=== PATIENT | male | born 1965 | race Caucasian/White ===

== ENCOUNTER 2024-04-26 20:24 | Inpatient (IN) ==
[2024-04-26] MEDS: OPTIRAY 320 125ml IV ONE (20:41)
[2024-04-26] MEDS: SODIUM CHLORIDE 0.9% 1,000 ML IV ONE (20:55)
[2024-04-26] MEDS: ONDANSETRON INJ 2 MG/ML 2 ML VIAL IV STA (20:56)
[2024-04-26 21:02] LABS: iSTAT Creatinine 0.7 mg/dl (0.6-1.3); iSTAT Hemoglobin 12.2 g/dl (14.0-18.0); iSTAT Ionized Calcium 1.16 mmol/l (1.12-1.32); iSTAT Potassium 4.2 mmol/L (3.3-5.0)
--- NOTE | 2024-04-26 21:13 | Emergency Department Note ---
Impression & Plan Stroke-like symptoms, Vomiting, Hypomagnesemia, Facial droop, Headache ED Provider Note HISTORY OF PRESENT ILLNESS: Patient is a 58-year-old male presenting with strokelike symptoms. Patient reports that he woke up normal this morning but developed an acute onset of a headache at 7 AM. He states that his headache persisted and at 1300 he began to have slurred speech and right-sided facial droop. He went to the [facility] and EMS was called at 1945 due to his progression of symptoms. Patient had multiple episodes of vomiting prior to EMS arrival. Patient is not on any anticoagulation. Denies any recent head injury or chiropractic manipulation of the neck. He is currently complaining of nausea. He reports his speech sounds slurred. ROS: as above PHYSICAL EXAM: Constitutional: Patient appears in no acute distress. HENT: Head: Normocephalic and atraumatic. Eyes: EOMI, PERRL Mouth/Throat: Mucous membranes moist. Neck: Trachea midline. Neck supple. Cardiovascular: RRR, No murmurs, rubs or gallops. Intact distal pulses. Pulmonary/Chest: No respiratory distress. Breath sounds clear and equal bilaterally. No wheezes or rales. Abdominal: Abdomen soft, no tenderness, rebound or guarding. Musculoskeletal: No edema, tenderness or deformity noted. Skin: Warm and dry. No rash, erythema, pallor or cyanosis Psychiatric: Appropriate mood and affect for situation. Neurological: Alert and keenly responsive. Speech is slightly slurred. Patient has a right sided lower facial droop. Strength 4-5 in bilateral upper and lower extremities. MDM: - Vitals signs stable. Patient was alerted as a stroke prehospital, given concern for potential hemorrhagic stroke as a source for symptoms. Taken immediately to CT scanner on arrival to the ER. - History obtained via patient and EMS. History as above. - Chronic conditions affecting care: DM-2 - Differential diagnoses include, but are not limited to: CVA; intracranial hemorrhage; viral syndrome; ACS; pneumonia - Order placed for continuous cardiac monitoring. At this time, monitor showed rate of 83 bpm with normal sinus rhythm, per my interpretation. - External medical records reviewed. - EKG interpreted by myself showed normal sinus rhythm. Rate 84 bpm. QT 344. No acute ischemic changes. Noted have an incomplete right bundle branch block. - Laboratory workup interpreted by myself showed normal WBC; anemia (Hgb 11.9); normal PT/INR; stable electrolytes other than slight hypomagnesemia (Mg 1.3) - Patient given 1g IV magnesium for electrolyte replacement - Given 1L NS and 4 mg IV zofran in ER. - UA negative for infection - CXR negative for pneumonia, per my interpretation - CT head wo contrast negative for acute pathology - CTA head/neck negative for acute CVA - Patient is not within the window for TNK administration, as his last known well was before 7 AM and he presents to the emergency department closer to 1999. No obvious large vessel occlusion on examination or on CT imaging. Will admit to hospital service for further strokelike symptoms workup - Discussion was had with vocational case manager about patient's case and need for admission - Hospitalist, Dr. Malik, consulted for admission - Patient admitted to [facility] Hospitalist service for further evaluation and management. ASSESSMENT AND PLAN: Diagnosis: Strokelike symptoms; headache; vomiting; facial droop; hypomagnesemia Plan: Admit Past Med/Surg History Problem List (Updated 04/26/24 @ 23:39 by Ivis Chong MD) Headache (Acute) Facial droop (Acute) Hypomagnesemia (Acute) Vomiting (Acute) Stroke-like symptoms (Acute) Social History Smoking Status: Former smoker Preferred Language: Serbian Feels Safe at Home: Yes Allergies Allergies Allergy/AdvReac Type Severity Reaction Status Date / Time No Known Allergies Allergy Unverified 04/26/24 22:28 Home Meds Home Medications Medication Instructions Recorded Confirmed Crestor 40 mg PO 1XD 04/26/24 04/26/24 acetaminophen 650 mg PO 4XD 04/26/24 04/26/24 duloxetine 60 mg PO 1XD 04/26/24 04/26/24 gabapentin 600 mg PO 2XD 04/26/24 04/26/24 insulin glargine 35 units SC 1XD 04/26/24 04/26/24 meloxicam 15 mg PO 1XD PRN Pain 04/26/24 04/26/24 metformin 1,000 mg PO 2XD 04/26/24 04/26/24 mirtazapine 30 mg PO 1XD 04/26/24 04/26/24 omeprazole 20 mg PO 1XD 04/26/24 04/26/24 Results & Data (ED) Vital Signs Vital Signs - 24 hr 04/26/24 20:46 04/26/24 20:46 04/26/24 21:07 Pulse Rate 85 81 Pulse Rate [Apical] Pulse Rhythm Regular Regular Pulse Rhythm [Apical] Pulse Strength Normal Pulse Strength [Apical] Respiratory Rate 18 16 Respiratory Effort / Characteristics Non-Labored Spontaneous Respiratory Depth Normal Respiratory Pattern Regular Blood Pressure 102/68 Blood Pressure [Right Arm] Blood Pressure Mean 79 Blood Pressure Mean [Right Arm] Blood Pressure Position Lying Blood Pressure Position [Right Arm] Pulse Oximetry 88 L 88 L 94 Oxygen Delivery Method Room Air Room Air Nasal Cannula Oxygen Flow Rate 2 Sepsis Recent Fever Within 48 Hours No Sepsis New/Unexplained Change in Mental Status No Sepsis Action Taken by Nursing No Action Required Oxygen Flow Rate - Titration 2 Pulse Oximetry Post Tiitration 93 04/26/24 21:07 04/26/24 22:25 Pulse Rate Pulse Rate [Apical] 82 83 Pulse Rhythm Pulse Rhythm [Apical] Regular Regular Pulse Strength Pulse Strength [Apical] Normal Normal Respiratory Rate 16 18 Respiratory Effort / Characteristics Non-Labored Spontaneous Non-Labored Spontaneous Respiratory Depth Normal Normal Respiratory Pattern Regular Regular Blood Pressure Blood Pressure [Right Arm] 119/88 145/83 H Blood Pressure Mean Blood Pressure Mean [Right Arm] 98 103 Blood Pressure Position Blood Pressure Position [Right Arm] Lying Lying Pulse Oximetry 94 92 Oxygen Delivery Method Nasal Cannula Nasal Cannula Oxygen Flow Rate 2 2 Sepsis Recent Fever Within 48 Hours Sepsis New/Unexplained Change in Mental Status Sepsis Action Taken by Nursing Oxygen Flow Rate - Titration Pulse Oximetry Post Tiitration Laboratory Data 04/26/24 20:45 04/26/24 20:45 Lab Results 04/26/24 04/26/24 04/26/24 Range/Units 20:41 20:45 20:49 WBC 7.00 (4.8-10.8) K/ul RBC 4.46 L (4.70-6.10) M/uL Hgb 11.9 L (14.0-18.0) g/dl POC Hgb 12.2 L (14.0-18.0) g/dl Hct 35.9 L (42.0-52.0) % POC Hct 36 L (42-52) % MCV 80.5 (80.0-100.0) fL MCH 26.7 (25.0-34.0) pg MCHC 33.1 (32.0-36.0) g/dL RDW Std Deviation 37.0 (36.4-46.3) fL RDW Coeff of Juliana 12.8 (11.5-14.5) % Plt Count 244 (130-400) K/uL MPV 9.4 (9.4-12.4) fL PT 11.2 (9.0-12.0) Seconds INR 1.0 (0.9-1.1) APTT 25 (21-31) Seconds PTT Ratio 0.9 POC Sodium 136 (135-144) mmol/L Sodium 135 L (136-145) mmol/L POC Potassium 4.2 (3.3-5.0) mmol/L Potassium 4.1 (3.5-5.1) mmol/L POC Chloride 98 L (101-112) mmol/L Chloride 101 (98-107) mmol/L Carbon Dioxide 28 (21-32) mmol/L POC Total CO2 23 L (24-31) mmol/L Anion Gap 6 (3-11) POC Anion Gap 21.0 (16-25) mmol/L POC BUN 12 (7-18) mg/dl BUN 13 (6-23) mg/dl Creatinine 0.75 (0.6-1.4) mg/dl POC Creatinine 0.7 (0.6-1.3) mg/dl Est Cr Clr Drug Dosing 121.5 ml/min Est GFR ( Amer) 116.4 ml/min Est GFR (Non-Af Amer) 100.4 ml/min BUN/Creatinine Ratio 17.3 (10-20) Glucose 143 H (70-99(Fasting)) mg/dl POC Glucose 143 H (70-99) mg/dl POC Glucose (other) 138 H (70-99) mg/dl Calcium 8.8 (8.6-10.3) mg/dl POC Ioniz Calcium Darwin 1.16 (1.12-1.32) mmol/l Magnesium 1.3 L (1.7-2.4) mg/dl Total Bilirubin 1.2 H (0.2-1.0) mg/dl AST 19 (13-39) U/L ALT 18 (7-52) U/L Alkaline Phosphatase 57 (34-104) U/L Total Protein 5.9 L (6.0-8.3) gm/dl Albumin 4.0 (3.4-5.0) gm/dl Globulin 1.9 L (2.5-4.0) gm/dl Albumin/Globulin Ratio 2.1 H (0.9-2) Urine Color Urine Appearance (Clear) Urine pH (4.5-7.5) Ur Specific [place] (1.000-1.030) Urine Protein (Negative) Urine Glucose (UA) (Negative) Urine Ketones (Negative) Urine Blood (Negative) Urine Nitrite (Negative) Urine Bilirubin (Negative) Urine Urobilinogen (Negative) Ur Leukocyte Esterase (Negative) Urine WBC (Auto) (0-5) /hpf Urine RBC (Auto) (0-2) /hpf U Hyaline Cast (Auto) (0-2) /lpf U Epithel Cells (Auto) (0-2) /hpf Urine Bacteria (Auto) (None Seen) 04/26/24 Range/Units 22:12 WBC (4.8-10.8) K/ul RBC (4.70-6.10) M/uL Hgb (14.0-18.0) g/dl POC Hgb (14.0-18.0) g/dl Hct (42.0-52.0) % POC Hct (42-52) % MCV (80.0-100.0) fL MCH (25.0-34.0) pg MCHC (32.0-36.0) g/dL RDW Std Deviation (36.4-46.3) fL RDW Coeff of Juliana (11.5-14.5) % Plt Count (130-400) K/uL MPV (9.4-12.4) fL PT (9.0-12.0) Seconds INR (0.9-1.1) APTT (21-31) Seconds PTT Ratio POC Sodium (135-144) mmol/L Sodium (136-145) mmol/L POC Potassium (3.3-5.0) mmol/L Potassium (3.5-5.1) mmol/L POC Chloride (101-112) mmol/L Chloride (98-107) mmol/L Carbon Dioxide (21-32) mmol/L POC Total CO2 (24-31) mmol/L Anion Gap (3-11) POC Anion Gap (16-25) mmol/L POC BUN (7-18) mg/dl BUN (6-23) mg/dl Creatinine (0.6-1.4) mg/dl POC Creatinine (0.6-1.3) mg/dl Est Cr Clr Drug Dosing ml/min Est GFR ( Amer) ml/min Est GFR (Non-Af Amer) ml/min BUN/Creatinine Ratio (10-20) Glucose (70-99(Fasting)) mg/dl POC Glucose (70-99) mg/dl POC Glucose (other) (70-99) mg/dl Calcium (8.6-10.3) mg/dl POC Ioniz Calcium Darwin (1.12-1.32) mmol/l Magnesium (1.7-2.4) mg/dl Total Bilirubin (0.2-1.0) mg/dl AST (13-39) U/L ALT (7-52) U/L Alkaline Phosphatase (34-104) U/L Total Protein (6.0-8.3) gm/dl Albumin (3.4-5.0) gm/dl Globulin (2.5-4.0) gm/dl Albumin/Globulin Ratio (0.9-2) Urine Color Yellow Urine Appearance Clear (Clear) Urine pH 7.5 (4.5-7.5) Ur Specific [place] > 1.045 H (1.000-1.030) Urine Protein 1+ H (Negative) Urine Glucose (UA) Negative (Negative) Urine Ketones Negative (Negative) Urine Blood Negative (Negative) Urine Nitrite Negative (Negative) Urine Bilirubin Negative (Negative) Urine Urobilinogen Negative (Negative) Ur Leukocyte Esterase Negative (Negative) Urine WBC (Auto) 0-5 (0-5) /hpf Urine RBC (Auto) 0-2 (0-2) /hpf U Hyaline Cast (Auto) 0-2 (0-2) /lpf U Epithel Cells (Auto) 0-2 (0-2) /hpf Urine Bacteria (Auto) None Seen (None Seen) Administered Medications Magnesium Sulfate/Dextrose (Magnesium Sulfate / D5w) 1 gm in 100 mls @ 50 mls/hr IV Q2H KAMI Stop: 04/27/24 02:59 Last Admin: 04/26/24 22:33 Dose: 50 mls/hr Documented By: SNS Discontinued Medications Sodium Chloride (Nss) 1,000 mls @ 999 mls/hr IV .Q1H1M ONE Stop: 04/26/24 21:45 Last Infusion: 04/26/24 21:57 Dose: Infused Documented By: Admin: 04/26/24 20:55 Dose: 999 mls/hr Documented By: ROXANE Magnesium Sulfate/Dextrose (Magnesium Sulfate / D5w) 1 gm in 100 mls @ 100 mls/hr IV NOW STA Stop: 04/26/24 22:17 Last Infusion: 04/26/24 22:28 Dose: Infused Documented By: Admin: 04/26/24 21:26 Dose: 100 mls/hr Documented By: ROXANE Ioversol (Optiray 320 125ml) 119 ml IV ONCE ONE Stop: 04/26/24 20:42 Last Admin: 04/26/24 20:41 Dose: 119 ml Documented By: KENNETH Ondansetron HCl (Ondansetron Inj 2 Mg/Ml 2 Ml Vial) 4 mg IV NOW STA Stop: 04/26/24 20:46 Last Admin: 04/26/24 20:56 Dose: 4 mg Documented By: ROXANE Imaging Data Radiologist's Impression: Head CT 04/26/24 20:30 CR Exam(s): CT HEAD Without Contrast EXAM: CT Head Without Intravenous Contrast CLINICAL HISTORY: Reason for exam: altered mental status; vomiting; headache. TECHNIQUE: Axial computed tomography images of the head/brain without intravenous contrast. CTDI is 44.21 mGy and DLP is 774.27 mGy-cm. Automated exposure control was utilized for the study. A dose lowering technique was utilized adhering to the principles of ALARA. COMPARISON: No relevant prior studies available. FINDINGS: Limitations: Exam slight limited secondary patient motion artifact. Brain: Unremarkable. No hemorrhage. No significant white matter disease. No edema. Ventricles: Unremarkable. No ventriculomegaly. Bones/joints: Unremarkable. No acute fracture. Soft tissues: Unremarkable. Sinuses: Unremarkable as visualized. No acute sinusitis. Mastoid air cells: Unremarkable as visualized. No mastoid effusion. IMPRESSION: No acute findings in the head/brain. Communications: Call Doctor Stroke Electronically signed by: Melvin Moscoso MD 04/26/24 21:16 PM Head CTA 04/26/24 20:30 CR Exam(s): CTA HEAD With Contrast IV Amt: 119 ml opti 320 EXAM: CT Angiography Head With Intravenous Contrast CLINICAL HISTORY: Reason for exam: stroke. TECHNIQUE: Axial computed tomographic angiography images of the head with intravenous contrast. CTDI is 91.44 mGy and DLP is 1342.35 mGy-cm. Automated exposure control was utilized for the study. A dose lowering technique was utilized adhering to the principles of ALARA. MIP reconstructed images were created and reviewed. CONTRAST: Patient received 119 ml opti 320 of IV contrast COMPARISON: No relevant prior studies available. FINDINGS: Right internal carotid artery: No acute findings. Intracranial segment is patent with no significant stenosis. No aneurysm. Right anterior cerebral artery: Unremarkable. No occlusion or significant stenosis. No aneurysm. Right middle cerebral artery: Unremarkable. No occlusion or significant stenosis. No aneurysm. Right posterior cerebral artery: Unremarkable. No occlusion or significant stenosis. No aneurysm. Right vertebral artery: Unremarkable as visualized. Left internal carotid artery: No acute findings. Intracranial segment is patent with no significant stenosis. No aneurysm. Left anterior cerebral artery: Unremarkable. No occlusion or significant stenosis. No aneurysm. Left middle cerebral artery: Unremarkable. No occlusion or significant stenosis. No aneurysm. Left posterior cerebral artery: Unremarkable. No occlusion or significant stenosis. No aneurysm. Left vertebral artery: Unremarkable as visualized. Basilar artery: Unremarkable. No occlusion or significant stenosis. No aneurysm. IMPRESSION: Normal head CTA. Communications: Call Doctor Stroke Electronically signed by: Melvin Moscoso MD 04/26/24 21:25 PM Neck CTA 04/26/24 20:30 CR Exam(s): CTA NECK With Contrast IV Amt: 119 ml opti 320 EXAM: CT Angiography Neck With Intravenous Contrast CLINICAL HISTORY: Reason for exam: stroke like symptoms. TECHNIQUE: Routine carotid CT angiography protocol was performed with intravenous contrast. NASCET criteria using the distal ICAs for comparison were used for evaluation of stenoses. CTDI is 91.44 mGy and DLP is 1342.35 mGy-cm. Automated exposure control was utilized for the study. A dose lowering technique was utilized adhering to the principles of ALARA. MIP reconstructed images were created and reviewed. CONTRAST: Patient received 119 ml opti 320 of IV contrast COMPARISON: None. FINDINGS: VASCULATURE: Right common carotid artery: Unremarkable. No occlusion or significant stenosis. No dissection. Right internal carotid artery: Unremarkable. Extracranial segment is patent with no occlusion or significant stenosis. No dissection. Right external carotid artery: Unremarkable. No occlusion. Right vertebral artery: Unremarkable. No occlusion or significant stenosis. No dissection. Left common carotid artery: Unremarkable. No occlusion or significant stenosis. No dissection. Left internal carotid artery: Unremarkable. Extracranial segment is patent with no occlusion or significant stenosis. No dissection. Left external carotid artery: Unremarkable. No occlusion. Left vertebral artery: Unremarkable. No occlusion or significant stenosis. No dissection. NECK: Bones/joints: Unremarkable. No acute fracture. Soft tissues: Unremarkable. Lung apices: Clear. CAROTID STENOSIS REFERENCE USING NASCET CRITERIA: % ICA stenosis = (1 - narrowest ICA diameter/diameter of distal cervical ICA) x 100. Mild - <50% stenosis. Moderate - 50-69% stenosis. Severe - 70-94% stenosis. Near occlusion - 95-99% stenosis. Occluded - 100% stenosis. IMPRESSION: Negative CTA neck. Communications: Call Doctor Stroke Electronically signed by: Melvin Moscoso MD 04/26/24 21:26 PM Discharge Plan Visit Data Chief Complaint: Stroke Alert Stated Complaint: Slurred Speech, DYE, Facial Droop ED Provider: Ivis Chong Discharge Problem: Stroke-like symptoms, Vomiting, Hypomagnesemia, Facial droop, Headache Forms Stand Alone Forms: [facility] 24/7 Card Prescriptions Prescriptions: No Action acetaminophen 650 mg PO 4XD meloxicam 15 mg PO 1XD PRN (Reason: Pain) mirtazapine 30 mg PO 1XD Rx Instructions: AT BEDTIME duloxetine 60 mg PO 1XD gabapentin 600 mg PO 2XD Rx Instructions: CRUSH metformin 1,000 mg PO 2XD omeprazole 20 mg PO 1XD Rx Instructions: take on an empty stomach Crestor 40 mg PO 1XD insulin glargine 35 units SC 1XD Referrals Referrals: Mane RIVER [Primary Care Provider] -
[2024-04-26 21:15] LABS: Albumin Globulin Ratio 2.1 (0.9-2); BUN Creatinine Ratio 17.3 (10-20); Bilirubin,Total 1.2 mg/dl (0.2-1.0); Calcium 8.8 mg/dl (8.6-10.3); Creatinine Clr Calc Pharmacy 121.5 ml/min; Est GFR (African American) 116.4 ml/min; Est GFR (Non-African American) 100.4 ml/min; Globulin 1.9 gm/dl (2.5-4.0); Magnesium 1.3 mg/dl (1.7-2.4); Potassium 4.1 mmol/L (3.5-5.1); Total Protein 5.9 gm/dl (6.0-8.3)
--- NOTE | 2024-04-26 21:17 | CT Scan Report ---
Exam(s): CT HEAD Without Contrast EXAM: CT Head Without Intravenous Contrast CLINICAL HISTORY: Reason for exam: altered mental status; vomiting; headache. TECHNIQUE: Axial computed tomography images of the head/brain without intravenous contrast. CTDI is 44.21 mGy and DLP is 774.27 mGy-cm. Automated exposure control was utilized for the study. A dose lowering technique was utilized adhering to the principles of ALARA. COMPARISON: No relevant prior studies available. FINDINGS: Limitations: Exam slight limited secondary patient motion artifact. Brain: Unremarkable. No hemorrhage. No significant white matter disease. No edema. Ventricles: Unremarkable. No ventriculomegaly. Bones/joints: Unremarkable. No acute fracture. Soft tissues: Unremarkable. Sinuses: Unremarkable as visualized. No acute sinusitis. Mastoid air cells: Unremarkable as visualized. No mastoid effusion. IMPRESSION: No acute findings in the head/brain. Communications: Call Doctor Stroke Electronically signed by: Melvin Moscoso MD 04/26/24 21:16 PM
[2024-04-26 21:25] LABS: Partial Thromboplastin Ratio 0.9; Partial Thromboplastin Time 25 Seconds (21-31); Prothrombin Time 11.2 Seconds (9.0-12.0)
[2024-04-26] MEDS: MAGNESIUM SULFATE / D5W 1 GM/100 ML BAG IV STA (21:26)
--- NOTE | 2024-04-26 21:26 | CT Scan Report ---
Exam(s): CTA HEAD With Contrast IV Amt: 119 ml opti 320 EXAM: CT Angiography Head With Intravenous Contrast CLINICAL HISTORY: Reason for exam: stroke. TECHNIQUE: Axial computed tomographic angiography images of the head with intravenous contrast. CTDI is 91.44 mGy and DLP is 1342.35 mGy-cm. Automated exposure control was utilized for the study. A dose lowering technique was utilized adhering to the principles of ALARA. MIP reconstructed images were created and reviewed. CONTRAST: Patient received 119 ml opti 320 of IV contrast COMPARISON: No relevant prior studies available. FINDINGS: Right internal carotid artery: No acute findings. Intracranial segment is patent with no significant stenosis. No aneurysm. Right anterior cerebral artery: Unremarkable. No occlusion or significant stenosis. No aneurysm. Right middle cerebral artery: Unremarkable. No occlusion or significant stenosis. No aneurysm. Right posterior cerebral artery: Unremarkable. No occlusion or significant stenosis. No aneurysm. Right vertebral artery: Unremarkable as visualized. Left internal carotid artery: No acute findings. Intracranial segment is patent with no significant stenosis. No aneurysm. Left anterior cerebral artery: Unremarkable. No occlusion or significant stenosis. No aneurysm. Left middle cerebral artery: Unremarkable. No occlusion or significant stenosis. No aneurysm. Left posterior cerebral artery: Unremarkable. No occlusion or significant stenosis. No aneurysm. Left vertebral artery: Unremarkable as visualized. Basilar artery: Unremarkable. No occlusion or significant stenosis. No aneurysm. IMPRESSION: Normal head CTA. Communications: Call Doctor Stroke Electronically signed by: Melvin Moscoso MD 04/26/24 21:25 PM
--- NOTE | 2024-04-26 21:27 | CT Scan Report ---
Exam(s): CTA NECK With Contrast IV Amt: 119 ml opti 320 EXAM: CT Angiography Neck With Intravenous Contrast CLINICAL HISTORY: Reason for exam: stroke like symptoms. TECHNIQUE: Routine carotid CT angiography protocol was performed with intravenous contrast. NASCET criteria using the distal ICAs for comparison were used for evaluation of stenoses. CTDI is 91.44 mGy and DLP is 1342.35 mGy-cm. Automated exposure control was utilized for the study. A dose lowering technique was utilized adhering to the principles of ALARA. MIP reconstructed images were created and reviewed. CONTRAST: Patient received 119 ml opti 320 of IV contrast COMPARISON: None. FINDINGS: VASCULATURE: Right common carotid artery: Unremarkable. No occlusion or significant stenosis. No dissection. Right internal carotid artery: Unremarkable. Extracranial segment is patent with no occlusion or significant stenosis. No dissection. Right external carotid artery: Unremarkable. No occlusion. Right vertebral artery: Unremarkable. No occlusion or significant stenosis. No dissection. Left common carotid artery: Unremarkable. No occlusion or significant stenosis. No dissection. Left internal carotid artery: Unremarkable. Extracranial segment is patent with no occlusion or significant stenosis. No dissection. Left external carotid artery: Unremarkable. No occlusion. Left vertebral artery: Unremarkable. No occlusion or significant stenosis. No dissection. NECK: Bones/joints: Unremarkable. No acute fracture. Soft tissues: Unremarkable. Lung apices: Clear. CAROTID STENOSIS REFERENCE USING NASCET CRITERIA: % ICA stenosis = (1 - narrowest ICA diameter/diameter of distal cervical ICA) x 100. Mild - <50% stenosis. Moderate - 50-69% stenosis. Severe - 70-94% stenosis. Near occlusion - 95-99% stenosis. Occluded - 100% stenosis. IMPRESSION: Negative CTA neck. Communications: Call Doctor Stroke Electronically signed by: Melvin Moscoso MD 04/26/24 21:26 PM
[2024-04-26 21:30] LABS: Hematocrit (blood only) 35.9 % (42.0-52.0); Hemoglobin 11.9 g/dl (14.0-18.0); Mean Corpuscular Hemoglobin 26.7 pg (25.0-34.0); Mean Corpuscular Hgb Conc 33.1 g/dL (32.0-36.0); Mean Corpuscular Volume 80.5 fL (80.0-100.0); Mean Platelet Volume 9.4 fL (9.4-12.4); Platelet Count 244 K/uL (130-400); RDW Coefficient of Variation 12.8 % (11.5-14.5); Red Blood Count 4.46 M/uL (4.70-6.10)
[2024-04-26 22:25] LABS: Appearance Urine Clear (Clear); Bacteria Urine Automated None Seen (None Seen); Bilirubin Urine Negative (Negative); Blood Urine Negative (Negative); Cast Urine Automated 0-2 /lpf (0-2); Color Urine Yellow; Epithelial Cell Urine Auto 0-2 /hpf (0-2); Glucose Urine UA Negative (Negative); Ketones Urine Negative (Negative); Leukocyte Esterase Urine Negative (Negative); Nitrite Urine Negative (Negative); Protein Urine 1+ (Negative); RBC Urine Automated 0-2 /hpf (0-2); Specific Gravity Urine > 1.045 (1.000-1.030); Urobilinogen Urine Negative (Negative); WBC Urine Automated 0-5 /hpf (0-5); pH Urine 7.5 (4.5-7.5)
[2024-04-26] MEDS: MAGNESIUM SULFATE / D5W 1 GM/100 ML BAG IV SCH (22:33)
[2024-04-26 22:46] LABS: Adenovirus PCR Not Detected (NotDetected); Bordetella parapertussis PCR Not Detected (NotDetected); Bordetella pertussis PCR Not Detected (NotDetected); Chlamydia pneumoniae PCR Not Detected (NotDetected); Coronavirus 229E PCR Not Detected (NotDetected); Coronavirus CoV-2 (COVID19)PCR DETECTED (NotDetected); Coronavirus HKU1 PCR Not Detected (NotDetected); Coronavirus NL63 PCR Not Detected (NotDetected); Coronavirus OC43PCR Not Detected (NotDetected); Human Metapneumovirus PCR Not Detected (NotDetected); Influenza A PCR Not Detected (NotDetected); Influenza B PCR Not Detected (NotDetected); Mycoplasma pneumoniae PCR Not Detected (NotDetected); Parainfluenza Virus 1 PCR Not Detected (NotDetected); Parainfluenza Virus 2 PCR Not Detected (NotDetected); Parainfluenza Virus 3 PCR Not Detected (NotDetected); Parainfluenza Virus 4 PCR Not Detected (NotDetected); Respiratory Syncytial VirusPCR Not Detected (NotDetected); Rhinovirus/Enterovirus PCR Not Detected (NotDetected)
--- NOTE | 2024-04-26 23:41 | History & Physical Report ---
Date of Service April 26, 2024 Assessment & Plan (1) Acute hypoxemic respiratory failure: Plan: Mild pulmonary edema on CT imaging COVID-19 illness Confusion, aphasia episodes Rule out CVA hyperlipidemia, on statin Rx DM2 insulin requiring, unknown baseline control New onset anemia, recent outpatient hemoglobin from October 2023 within normal limits as per SCI staff, no overt source of bleed currently, FOBT done at the ER negative. mood disorder past history of substance abuse as per records Admit to med/tele Supplemental O2 Lasix 1 dose now Supportive management for COVID-19 illness Check TTE Neurochecks Aspirin for stroke prevention until ischemic stroke ruled out by MRI brain Neurology consult contingent on MRI results Check lipid profile, hemoglobin A1c ISS BG goal 1 10-1 40, carb count coverage Anemia workup DVT prophylaxis per Lovenox subcu Full code Total critical care time last 40 minutes. Text document was generated using [employer] voice recognition software. It may contain grammatical or spelling errors. Kindly contact undersigned for clarification of any documentation item in question. History of Present Illness Chief Complaint: Headache, confusion, slurred speech as per records Primary Care Provider: [facility] History obtained from patient, SCI staff, and records. Limited history from patient secondary to disorientation. Medical history significant for hyperlipidemia, DM2 insulin requiring, GERD, chronic back pain, mood disorder, past history of substance abuse. Patient woke up this morning complaining of left-sided headache. Patient noted to be slurring his speech in the afternoon. Subsequent emesis. Patient brought to ER for evaluation. Stroke alert called upon arrival at the ER. O2 sats noted to be 80s on room air. Patient unable to answer questions regarding headache, chest pain, cough, SOB, abdominal pain due to confusion. Medical History as above Surgical History/Family History/Personal/Social history : Could not be obtained secondary to disorientation Allergies Allergy/AdvReac Type Severity Reaction Status Date / Time No Known Allergies Allergy Unverified 04/26/24 22:28 Home Medications Medication Instructions Recorded Confirmed Type Crestor 40 mg PO 1XD 04/26/24 04/26/24 History acetaminophen 650 mg PO 4XD 04/26/24 04/26/24 History duloxetine 60 mg PO 1XD 04/26/24 04/26/24 History gabapentin 600 mg PO 2XD 04/26/24 04/26/24 History insulin glargine 35 units SC 1XD 04/26/24 04/26/24 History meloxicam 15 mg PO 1XD PRN Pain 04/26/24 04/26/24 History metformin 1,000 mg PO 2XD 04/26/24 04/26/24 History mirtazapine 30 mg PO 1XD 04/26/24 04/26/24 History omeprazole 20 mg PO 1XD 04/26/24 04/26/24 History Past Med/Surg History Problem List (Updated 04/27/24 @ 06:13 by Lucius Malik MD) Acute hypoxemic respiratory failure Headache (Acute) Facial droop (Acute) Hypomagnesemia (Acute) Vomiting (Acute) Stroke-like symptoms (Acute) Social History Smoking Status: Former smoker Do You Dip or Chew Tobacco: No; Hx Alcohol Use: No Hx Substance Use: No Preferred Language: Nepalese Communication Ability: Effective Debt And Budget Counselor Required: No Beliefs That Will Affect Care: None Current Living Situation: Other Current Living Situation Comment: [facility] Other Information That Helps Us Care for You: No Feels Safe at Home: Yes Safety Concerns: Feels Safe At This Time Assistive Devices: None Review of Systems Review of Systems: Could not be reliably obtained secondary to disorientation Physical Exam Physical Exam: GENERAL: Aphasic, disoriented, restless, no respiratory distress SKIN: Pallor, warm HEENT: Pale palpebral conjunctivae, no ptosis, dry buccal mucosa NECK : Supple, no tenderness CHEST : Decreased breath sounds, no tenderness HEART : RRR, no obvious murmurs ABDOMEN: Some distention, nontender RECTAL : Intact sphincter, yellow stool (FOBT negative) EXTREMITIES : No LE swelling/tenderness, no other conspicuous deformities noted NEUROLOGIC : Aphasic, disoriented, no facial asymmetry, gait and stance not assessed Results & Data Results & Data Vital Signs (Past 12 Hours) Vital Signs Pulse Pulse Resp BP BP Pulse Ox O2 Del Method 04/26/24 22:25 83 18 145/83 H 92 Nasal Cannula 04/26/24 21:07 82 16 119/88 94 Nasal Cannula 04/26/24 21:07 81 16 94 Nasal Cannula 04/26/24 20:46 88 L Room Air 04/26/24 20:46 85 18 102/68 88 L Room Air O2 Flow Rate 04/26/24 22:25 2 04/26/24 21:07 2 04/26/24 21:07 2 04/26/24 20:46 04/26/24 20:46 Laboratory Results Laboratory Results WBC 7.00 K/ul (4.8-10.8) 04/26/24 20:45 RBC 4.46 M/uL (4.70-6.10) L 04/26/24 20:45 Hgb 11.9 g/dl (14.0-18.0) L 04/26/24 20:45 POC Hgb 12.2 g/dl (14.0-18.0) L 04/26/24 20:49 Hct 35.9 % (42.0-52.0) L 04/26/24 20:45 POC Hct 36 % (42-52) L 04/26/24 20:49 MCV 80.5 fL (80.0-100.0) 04/26/24 20:45 MCH 26.7 pg (25.0-34.0) 04/26/24 20:45 MCHC 33.1 g/dL (32.0-36.0) 04/26/24 20:45 RDW Std Deviation 37.0 fL (36.4-46.3) 04/26/24 20:45 RDW Coeff of Juliana 12.8 % (11.5-14.5) 04/26/24 20:45 Plt Count 244 K/uL (130-400) 04/26/24 20:45 MPV 9.4 fL (9.4-12.4) 04/26/24 20:45 PT 11.2 Seconds (9.0-12.0) 04/26/24 20:45 INR 1.0 (0.9-1.1) 04/26/24 20:45 APTT 25 Seconds (21-31) 04/26/24 20:45 PTT Ratio 0.9 04/26/24 20:45 POC Sodium 136 mmol/L (135-144) 04/26/24 20:49 Sodium 135 mmol/L (136-145) L 04/26/24 20:45 POC Potassium 4.2 mmol/L (3.3-5.0) 04/26/24 20:49 Potassium 4.1 mmol/L (3.5-5.1) 04/26/24 20:45 POC Chloride 98 mmol/L (101-112) L 04/26/24 20:49 Chloride 101 mmol/L (98-107) 04/26/24 20:45 Carbon Dioxide 28 mmol/L (21-32) 04/26/24 20:45 POC Total CO2 23 mmol/L (24-31) L 04/26/24 20:49 Anion Gap 6 (3-11) 04/26/24 20:45 POC Anion Gap 21.0 mmol/L (16-25) 04/26/24 20:49 POC BUN 12 mg/dl (7-18) 04/26/24 20:49 BUN 13 mg/dl (6-23) 04/26/24 20:45 Creatinine 0.75 mg/dl (0.6-1.4) 04/26/24 20:45 POC Creatinine 0.7 mg/dl (0.6-1.3) 04/26/24 20:49 Est Cr Clr Drug Dosing 121.5 ml/min 04/26/24 20:45 Est GFR ( Amer) 116.4 ml/min 04/26/24 20:45 Est GFR (Non-Af Amer) 100.4 ml/min 04/26/24 20:45 BUN/Creatinine Ratio 17.3 (10-20) 04/26/24 20:45 Glucose 143 mg/dl (70-99(Fasting)) H 04/26/24 20:45 POC Glucose 143 mg/dl (70-99) H 04/26/24 20:41 POC Glucose (other) 138 mg/dl (70-99) H 04/26/24 20:49 Calcium 8.8 mg/dl (8.6-10.3) 04/26/24 20:45 POC Ioniz Calcium Darwin 1.16 mmol/l (1.12-1.32) 04/26/24 20:49 Magnesium 1.3 mg/dl (1.7-2.4) L 04/26/24 20:45 Total Bilirubin 1.2 mg/dl (0.2-1.0) H 04/26/24 20:45 AST 19 U/L (13-39) 04/26/24 20:45 ALT 18 U/L (7-52) 04/26/24 20:45 Alkaline Phosphatase 57 U/L (34-104) 04/26/24 20:45 Total Protein 5.9 gm/dl (6.0-8.3) L 04/26/24 20:45 Albumin 4.0 gm/dl (3.4-5.0) 04/26/24 20:45 Globulin 1.9 gm/dl (2.5-4.0) L 04/26/24 20:45 Albumin/Globulin Ratio 2.1 (0.9-2) H 04/26/24 20:45 Urine Color Yellow 04/26/24 22:12 Urine Appearance Clear (Clear) 04/26/24 22:12 Urine pH 7.5 (4.5-7.5) 04/26/24 22:12 Ur Specific [place] > 1.045 (1.000-1.030) H 04/26/24 22:12 Urine Protein 1+ (Negative) H 04/26/24 22:12 Urine Glucose (UA) Negative (Negative) 04/26/24 22:12 Urine Ketones Negative (Negative) 04/26/24 22:12 Urine Blood Negative (Negative) 04/26/24 22:12 Urine Nitrite Negative (Negative) 04/26/24 22:12 Urine Bilirubin Negative (Negative) 04/26/24 22:12 Urine Urobilinogen Negative (Negative) 04/26/24 22:12 Ur Leukocyte Esterase Negative (Negative) 04/26/24 22:12 Urine WBC (Auto) 0-5 /hpf (0-5) 04/26/24 22:12 Urine RBC (Auto) 0-2 /hpf (0-2) 04/26/24 22:12 U Hyaline Cast (Auto) 0-2 /lpf (0-2) 04/26/24 22:12 U Epithel Cells (Auto) 0-2 /hpf (0-2) 04/26/24 22:12 Urine Bacteria (Auto) None Seen (None Seen) 04/26/24 22:[address] 04/26/24 20:30 CR Exam(s): CT HEAD Without Contrast EXAM: CT Head Without Intravenous Contrast CLINICAL HISTORY: Reason for exam: altered mental status; vomiting; headache. TECHNIQUE: Axial computed tomography images of the head/brain without intravenous contrast. CTDI is 44.21 mGy and DLP is 774.27 mGy-cm. Automated exposure control was utilized for the study. A dose lowering technique was utilized adhering to the principles of ALARA. COMPARISON: No relevant prior studies available. FINDINGS: Limitations: Exam slight limited secondary patient motion artifact. Brain: Unremarkable. No hemorrhage. No significant white matter disease. No edema. Ventricles: Unremarkable. No ventriculomegaly. Bones/joints: Unremarkable. No acute fracture. Soft tissues: Unremarkable. Sinuses: Unremarkable as visualized. No acute sinusitis. Mastoid air cells: Unremarkable as visualized. No mastoid effusion. IMPRESSION: No acute findings in the head/brain. Communications: Call Doctor Stroke Electronically signed by: Melvin Moscoso MD 04/26/24 21:16 PM Head CTA 04/26/24 20:30 CR Exam(s): CTA HEAD With Contrast IV Amt: 119 ml opti 320 EXAM: CT Angiography Head With Intravenous Contrast CLINICAL HISTORY: Reason for exam: stroke. TECHNIQUE: Axial computed tomographic angiography images of the head with intravenous contrast. CTDI is 91.44 mGy and DLP is 1342.35 mGy-cm. Automated exposure control was utilized for the study. A dose lowering technique was utilized adhering to the principles of ALARA. MIP reconstructed images were created and reviewed. CONTRAST: Patient received 119 ml opti 320 of IV contrast COMPARISON: No relevant prior studies available. FINDINGS: Right internal carotid artery: No acute findings. Intracranial segment is patent with no significant stenosis. No aneurysm. Right anterior cerebral artery: Unremarkable. No occlusion or significant stenosis. No aneurysm. Right middle cerebral artery: Unremarkable. No occlusion or significant stenosis. No aneurysm. Right posterior cerebral artery: Unremarkable. No occlusion or significant stenosis. No aneurysm. Right vertebral artery: Unremarkable as visualized. Left internal carotid artery: No acute findings. Intracranial segment is patent with no significant stenosis. No aneurysm. Left anterior cerebral artery: Unremarkable. No occlusion or significant stenosis. No aneurysm. Left middle cerebral artery: Unremarkable. No occlusion or significant stenosis. No aneurysm. Left posterior cerebral artery: Unremarkable. No occlusion or significant stenosis. No aneurysm. Left vertebral artery: Unremarkable as visualized. Basilar artery: Unremarkable. No occlusion or significant stenosis. No aneurysm. IMPRESSION: Normal head CTA. Communications: Call Doctor Stroke Electronically signed by: Melvin Moscoso MD 04/26/24 21:25 PM Neck CTA 04/26/24 20:30 CR Exam(s): CTA NECK With Contrast IV Amt: 119 ml opti 320 EXAM: CT Angiography Neck With Intravenous Contrast CLINICAL HISTORY: Reason for exam: stroke like symptoms. TECHNIQUE: Routine carotid CT angiography protocol was performed with intravenous contrast. NASCET criteria using the distal ICAs for comparison were used for evaluation of stenoses. CTDI is 91.44 mGy and DLP is 1342.35 mGy-cm. Automated exposure control was utilized for the study. A dose lowering technique was utilized adhering to the principles of ALARA. MIP reconstructed images were created and reviewed. CONTRAST: Patient received 119 ml opti 320 of IV contrast COMPARISON: None. FINDINGS: VASCULATURE: Right common carotid artery: Unremarkable. No occlusion or significant stenosis. No dissection. Right internal carotid artery: Unremarkable. Extracranial segment is patent with no occlusion or significant stenosis. No dissection. Right external carotid artery: Unremarkable. No occlusion. Right vertebral artery: Unremarkable. No occlusion or significant stenosis. No dissection. Left common carotid artery: Unremarkable. No occlusion or significant stenosis. No dissection. Left internal carotid artery: Unremarkable. Extracranial segment is patent with no occlusion or significant stenosis. No dissection. Left external carotid artery: Unremarkable. No occlusion. Left vertebral artery: Unremarkable. No occlusion or significant stenosis. No dissection. NECK: Bones/joints: Unremarkable. No acute fracture. Soft tissues: Unremarkable. Lung apices: Clear. CAROTID STENOSIS REFERENCE USING NASCET CRITERIA: % ICA stenosis = (1 - narrowest ICA diameter/diameter of distal cervical ICA) x 100. Mild - <50% stenosis. Moderate - 50-69% stenosis. Severe - 70-94% stenosis. Near occlusion - 95-99% stenosis. Occluded - 100% stenosis. IMPRESSION: Negative CTA neck. Communications: Call Doctor Stroke Electronically signed by: Melvin Moscoso MD 04/26/24 21:[address] chest: FINDINGS: Limitations: Exam limited secondary to patient motion artifact. Pulmonary arteries: Unremarkable. No large central pulmonary embolus. Aorta: No acute findings. No thoracic aortic aneurysm. Lungs: Intralobular septal thickening with groundglass opacities consistent with mild pulmonary edema. Bibasilar dependent atelectasis. Pleural space: Unremarkable. No significant effusion. No pneumothorax. Heart: Unremarkable. No cardiomegaly. No significant pericardial effusion. No evidence of RV dysfunction. Bones/joints: No acute fracture. No dislocation. Soft tissues: Unremarkable. Lymph nodes: Unremarkable. No enlarged lymph nodes. Liver: Fatty infiltration of the liver. IMPRESSION: Limited exam Diagnostic Findings EKG as per my interpretation : Rate 85, NSR, LAD, LAFB, incomplete RBBB, T wave abnormalities inferior and septal leads
[2024-04-26] MEDS ORDERED: PHARMACIST DISCHARGE MED REC CONSULT PRN (23:46)
[2024-04-26] MEDS ORDERED: PROMETHAZINE 6.25 MG/50.25 ML BAG IV PRN (23:48)
[2024-04-27] MEDS: ASPIRIN 81 MG ECTAB PO STA (00:11)
[2024-04-27 00:55] LABS: Base Excess VBG 1.2 mEq/L; HCO3 VBG 27 mmol/L; Oxygen Saturation VBG 73.6 %; PCO2 VBG 44 mmHg (38-50); PO2 VBG 41 mmHg; pH VBG 7.39 (7.36-7.41)
[2024-04-27 01:05] LABS: Reticulocyte % 0.97 % (0.50-2.00); Reticulocytes # 0.04 10^6/uL (0.020-0.100)
[2024-04-27 01:21] LABS: Amphetamines+Metham, Urine Neg (Neg); Barbiturates, Urine Neg (Neg); Benzodiazepine, Urine Neg (Neg); Cocaine, Urine Neg (Neg); Fentanyl, Urine Neg (Neg); MDMA (Ecstacy), Urine Neg (Neg); Marijuana, Urine Neg (Neg); Methadone, Urine Neg (Neg); Opiate, Urine Neg (Neg); Phencyclidine, Urine Neg (Neg)
[2024-04-27 01:40] LABS: Ferritin 136.7 ng/ml (8-388)
[2024-04-27 01:46] LABS: Folate (Folic Acid),Ser orPlas 14.47 ng/ml (>5.38)
[2024-04-27] MEDS: OPTIRAY 320 125ml IV ONE (02:01)
[2024-04-27] MEDS ORDERED: CARBOHYDRATES FOR HYPOGLYCEMIA PO PRN (03:03)
[2024-04-27] MEDS ORDERED: GLUCOSE 10 TAB/TUBE PO PRN (03:03)
[2024-04-27] MEDS ORDERED: GLUCAGON FOR INJ 1 MG VIAL SQ PRN (03:03)
[2024-04-27] MEDS ORDERED: DEXTROSE 50% 50 ML SYRINGE IV PRN (03:03)
[2024-04-27] MEDS ORDERED: GLUCOSE 40% GEL 15 GM TUBE PO PRN (03:03)
--- NOTE | 2024-04-27 03:35 | CT Scan Report ---
Exam(s): CTA CHEST IV Amt: 120 ML EXAM: CT Angiography Chest With Intravenous Contrast CLINICAL HISTORY: Reason for exam: low o2. TECHNIQUE: Axial computed tomographic angiography images of the chest with intravenous contrast. CTDI is 27.05 mGy and DLP is 833.04 mGy-cm. Automated exposure control was utilized for the study. A dose lowering technique was utilized adhering to the principles of ALARA. MIP reconstructed images were created and reviewed. COMPARISON: No relevant prior studies available. FINDINGS: Limitations: Exam limited secondary to patient motion artifact. Pulmonary arteries: Unremarkable. No large central pulmonary embolus. Aorta: No acute findings. No thoracic aortic aneurysm. Lungs: Intralobular septal thickening with groundglass opacities consistent with mild pulmonary edema. Bibasilar dependent atelectasis. Pleural space: Unremarkable. No significant effusion. No pneumothorax. Heart: Unremarkable. No cardiomegaly. No significant pericardial effusion. No evidence of RV dysfunction. Bones/joints: No acute fracture. No dislocation. Soft tissues: Unremarkable. Lymph nodes: Unremarkable. No enlarged lymph nodes. Liver: Fatty infiltration of the liver. IMPRESSION: Limited exam Grossly no acute findings in the visualized arteries of the chest. Electronically signed by: Melvin Moscoso MD 04/27/24 03:34 AM
[2024-04-27] MEDS: FUROSEMIDE INJ 20 MG/2 ML VIAL IV ONE (04:49)
[2024-04-27] MEDS: ALBUMIN 25% 12.5 GM/50 ML VIAL IV ONE (04:49)
[2024-04-27 05:16] LABS: Thyroid Stimulating Hormone 0.954 uIu/ml (0.300-4.500)
[2024-04-27] MEDS: PANTOprazole 40 MG TAB PO SCH (06:09)
[2024-04-27 07:04] LABS: Basophils # (auto) 0.04 K/uL (0.00-0.20); Basophils % (auto) 0.6 %; Hematocrit (blood only) 39.6 % (42.0-52.0); Hemoglobin 12.8 g/dl (14.0-18.0); Immature Granulocytes # (auto) 0.02 K/uL (0.01-0.20); Immature Granulocytes % (auto) 0.3 %; Lymphocytes # (auto) 0.41 K/uL (1.20-3.40); Lymphocytes % (auto) 6.3 %; Mean Corpuscular Hemoglobin 26.3 pg (25.0-34.0); Mean Corpuscular Hgb Conc 32.3 g/dL (32.0-36.0); Mean Corpuscular Volume 81.3 fL (80.0-100.0); Mean Platelet Volume 9.5 fL (9.4-12.4); Monocytes # (auto) 0.78 K/uL (0.11-0.59); Neutrophils # (auto) 5.27 K/uL (1.40-6.50); Neutrophils % (auto) 80.8 %; Platelet Count 237 K/uL (130-400); RDW Standard Deviation 38.2 fL (36.4-46.3); Red Blood Count 4.87 M/uL (4.70-6.10); White Blood Count 6.52 K/ul (4.8-10.8)
[2024-04-27 07:20] LABS: BUN Creatinine Ratio 14.5 (10-20); Calcium 9.1 mg/dl (8.6-10.3); Chol HDL Ratio 2.6 (0-5); Creatinine Clr Calc Pharmacy 132.4 ml/min; Est GFR (African American) 120.4 ml/min; Est GFR (Non-African American) 103.9 ml/min; Potassium 3.9 mmol/L (3.5-5.1)
[2024-04-27] MEDS ORDERED: Nursing to Pharmacy Communication SCH ×2 (07:30→12:30)
--- NOTE | 2024-04-27 07:38 | XRay Report ---
XR chest 1V portable HISTORY: 58 years-old Male stroke alert acute strokelike symptoms COMPARISON: CTA chest 04/27/2024 TECHNIQUE: AP view of the chest FINDINGS: Cardiac silhouette is enlarged. No pneumothorax, pleural effusion, or lobar airspace consolidation. P ulmonary vascular congestion with mild interstitial coarsening. Bones appear grossly intact. IMPRESSION: Cardiomegaly with pulmonary vascular congestion. ACT 112: Negative or not required by law. The above report was generated using voice recognition software. It may contain grammatical, syntax o r spelling errors. Electronically signed by: Homar Merino M.D. 04/27/2024 7:36 AM
[2024-04-27] MEDS ORDERED: PHARMACY GLYCEMIC MGMT CONSULT PRN (07:54)
[2024-04-27] MEDS: INSULIN ASPART PER UNIT CHARGE SC SCH ×3 (07:57→13:09)
[2024-04-27 08:03] LABS: Estimated Average Glucose 194 mg/dl; Hemoglobin A1C 8.4 % (4.5-5.6)
[2024-04-27] MEDS: REMDESIVIR 200 MG in SODIUM CHLORIDE 0.9% 210 ML IV STA (08:49)
[2024-04-27] MEDS: ASPIRIN 81 MG ECTAB PO SCH (08:54)
[2024-04-27] MEDS: ENOXAPARIN INJ 40 MG/0.4 ML SYR SQ SCH (08:55)
[2024-04-27] MEDS: DULoxetine HCL 60 MG CAP PO SCH (08:55)
[2024-04-27] MEDS ORDERED: DEXAMETHASONE SOD INJ 4 MG/ML VIAL IV SCH (09:00)
[2024-04-27] MEDS ORDERED: LANTUS PER UNIT CHARGE SQ SCH (09:00)
[2024-04-27] MEDS: LANTUS PER UNIT CHARGE SQ SCH (09:28)
[2024-04-27] MEDS: dexAMETHasone 6 MG in SYRINGE 0 ML IV SCH (09:31)
[2024-04-27] MEDS: ROSUVASTATIN CALCIUM 20 MG TAB PO SCH (09:58)
[2024-04-27] MEDS: GADOBUTROL 65ML VIAL IV ONE (11:54)
--- NOTE | 2024-04-27 12:13 | Magnetic Resonance Report ---
MR brain wo/w con HISTORY: 58 years-old Male [place] acute headache with altered mental status COMPARISON: Head CT 04/26/2024 TECHNIQUE: Multiple and multisequence MRI of the brain was obtained with and without IV contrast FINDINGS: No restricted diffusion. The midline structures appear unremarkable. Degenerative changes of the cerv ical spine. No acute intracranial hemorrhage, midline shift, abnormal extra-axial collection, or Ceph alus or intra-axial mass. Mild T2/FLAIR hyperintense foci throughout the white matter. Normal brain v olume. Study is mildly motion degraded. Cerebral venous sinuses and major arterial flow voids appear patent. Skull, orbits and soft tissues a re unremarkable. Mild mucosal thickening of the paranasal sinuses. No abnormal enhancement. IMPRESSION: 1. Motion degraded. No acute intracranial abnormality identified, specifically no acute or subacute i nfarct. 2. Suggestion of mild chronic microvascular ischemic disease. 3. No abnormal enhancement ACT 112: Negative or not required by law. The above report was generated using voice recognition software. It may contain grammatical, syntax o r spelling errors. Electronically signed by: Homar Merino M.D. 04/27/2024 12:12 PM
--- NOTE | 2024-04-27 13:43 | Pharmacy Report ---
Pharmacy Glycemic Short Note 2 - Date of Service April 27, 2024 - Glycemic Short BSG Results (Last 24 hours): 04/26/24 04/26/24 04/26/24 20:41 20:45 20:49 Glucose 143 H POC Glucose 143 H POC Glucose (other) 138 H 04/27/24 04/27/24 04/27/24 06:01 08:46 12:16 Glucose 196 H POC Glucose 168 H 198 H POC Glucose (other) 04/27/24 12:58 Glucose POC Glucose 226 H POC Glucose (other) OUTPATIENT ANTIDIABETIC REGIMEN: * Insulin glargine 35 units SQ Daily * Metformin 1g PO BID ASSESSMENT: * 58 YO M, admitted with stroke-like symptoms, COVID-19 repiratory virus, on IV Remdesivir. * Patient had basal insulin last on 04/26, restart home dose. * Patient was NPO this morning, started diet with lunch. * Patient on IV Dexamethasone daily - tighten CF/CR at this time. * Add overnight check tonight for steroids. PLAN FOR INPATIENT GLYCEMIC CONTROL: * Basal insulin * Lantus 35 units SQ daily * Bolus insulin * NovoLog per scale ACHS or Q6hrs while NPO and tonight at 0200 * Goal Range: Low 110 mg/dL - High 140 mg/dL * Correction Factor: 15 mg/dL/unit * Nutritional / Prandial insulin per carb ratio of 1 unit per 5 grams CHO consumed
--- NOTE | 2024-04-27 14:11 | Neurology Consultation ---
Date of Consultation April 27, 2024 Assessment & Plan (1) Stroke-like symptoms: Pj Orta presented with aphasia in the setting of COVID respiratory failure. MRI negative for stroke though with covid he is at risk for stroke. Suspect this episode was encephalopathy from the underlying infection. Would still keep on aspirin 81mg daily long-term given his vascular risk factors. -- Okay to remain on aspirin 81mg daily -- No further neurologic workup recommended Telehealth Consultation Telehealth Information Telehealth Information: I performed this visit using a real-time telehealth connection between my location and the patients location ([facility]). After connecting through interactive tele-video, patient was identified by name and date of and/or wristband check.Patient (or authorized healthcare manufacturers representative) was informed that this was a telemedicine visit and it was being conducted confidentially over secure lines. My office door was closed and no one else was present in the room with me.Patient (or authorized healthcare manufacturers representative) provided consent to proceed with the visit, expressed an understanding of privacy and security of the telemedicine visit, and gave permission to have a hospital manufacturers representative in the room in order to assist with the visit and to conduct portions of the visit, as needed. I informed the patient (or authorized healthcare manufacturers representative) that I reviewed their record and presented the opportunity for them to ask any questions regarding the visit today. The patient agreed to participate. History of Present Illness Reason for Consultation: Aphasia Requesting Physician: Dr. Anders Attending Physician: Patrice Anders MD History of Present Illness Pj Orta is a 58 yo M prisoner presenting with headache, brain fog and difficulty speaking yesterday. The patient was found to have COVID pneumonia with respiratory failure on arrival. Today he reports that his thinking is clearer and no further difficulty speaking. He denies any focal weakness or numbness otherwise. He does note that a similar episode happened to him in the past when he was sick. No history of stroke however. Otherwise back to baseline beyond feeling ill from COVID. Allergies Allergy/AdvReac Type Severity Reaction Status Date / Time No Known Allergies Allergy Unverified 04/26/24 22:28 Home Medications Medication Instructions Recorded Confirmed Type Crestor 40 mg PO 1XD 04/26/24 04/26/24 History acetaminophen 650 mg PO 4XD 04/26/24 04/26/24 History duloxetine 60 mg PO 1XD 04/26/24 04/26/24 History gabapentin 600 mg PO 2XD 04/26/24 04/26/24 History insulin glargine 35 units SC 1XD 04/26/24 04/26/24 History meloxicam 15 mg PO 1XD PRN Pain 04/26/24 04/26/24 History metformin 1,000 mg PO 2XD 04/26/24 04/26/24 History mirtazapine 30 mg PO 1XD 04/26/24 04/26/24 History omeprazole 20 mg PO 1XD 04/26/24 04/26/24 History Patient History Social History Smoking Status: Former smoker Do You Dip or Chew Tobacco: No; Hx Alcohol Use: No Hx Substance Use: No Preferred Language: Singaporean Communication Ability: Effective Oil And Gas Drafter Required: No Beliefs That Will Affect Care: None Current Living Situation: Other Current Living Situation Comment: [facility] Other Information That Helps Us Care for You: No Feels Safe at Home: Yes Safety Concerns: Feels Safe At This Time Assistive Devices: None Review of Systems +headache Physical Exam Neurological Examination: Mental Status: Awake and alert. Oriented to person, place, and time. Fluent. Slurred speech at baseline. Comprehension intact. Affect appropriate. Cranial Nerves: II: Reads NIHSS cards, pupils 3/3 to 2/2, myers grossly intact. III/IV/: Versions intact without nystagmus, no gaze preference. V: Facial sensation symmetric to light touch VII: Facial expression symmetric VIII: Hearing intact to voice IX/X: Palate elevates symmetrically XI: Shoulder shrug symmetric XII: Tongue midline Motor: Strength was symmetric and antigravity throughout. Pronator drift was absent. There were no abnormal movements. Coordination: Movements were non-ataxic Reflexes: Unable to assess over telemedicine Results & Data Vital Signs (Past 12 Hours) Vital Signs Temp Pulse Pulse Resp BP Pulse Ox Pulse Ox 04/27/24 07:23 81 04/27/24 05:51 04/27/24 03:03 37.8 C H 80 18 116/78 92 04/27/24 03:03 94 O2 Del Method O2 Del Method O2 Flow Rate O2 Flow Rate 04/27/24 07:23 04/27/24 05:51 Nasal Cannula 2 04/27/24 03:03 Nasal Cannula 2 04/27/24 03:03 Nasal Cannula 2 Diagnostic Findings MRI brain - Unremarkable
--- NOTE | 2024-04-27 16:23 | Hospitalist Progress Note ---
Date of Service April 27, 2024 Assessment & Plan (1) Acute hypoxemic respiratory failure: Plan: Mild pulmonary edema on CT imaging COVID-19 Pneumonia - Remdesivir Decadron Mucinex IS, FV Lovenox SC for DVT prophylaxis - received IV Lasix echo pending Confusion, aphasia episodes possible TIA vs Metabolic Encephalopathy - Neuro symptoms resolved - Brain MRI: 1. Motion degraded. No acute intracranial abnormality identified, specifically no acute or subacute infarct. 2. Suggestion of mild chronic microvascular ischemic disease. 3. No abnormal enhancement - evaluated by Neuro continue ASA 81mg po daily hyperlipidemia, on statin Rx DM2 insulin requiring, unknown baseline control a1c 8.4 ISS New onset anemia, recent outpatient hemoglobin from October 2023 within normal limits as per [facility] staff, no overt source of bleed currently, FOBT done at the ER negative. -- Hg stable -- Fe 27 Start ferrous sulfate mood disorder past history of substance abuse as per records DVT prophylaxis per Lovenox subcu Full code Admission and Anticipated Discharge Date Admission Date: April 26, 2024 Subjective ff up for covid infection, stroke like symptoms, etc seen resting in bed, comfortable feels fine overall speech back to baseline, no new neurologic deficits as per patient has mild productive cough, no chest pain, palpitations, dizziness no other symptoms Review of Systems Review of Systems: all noted and negative except for above Physical Exam Physical Exam: General- oriented x 3, not in distress, speaks in sentences with no effort or accessory muscle use Eyes- anicteric Neck- no JVD Lungs-mild rhonchi BL bases Heart- normal rate, regular rhythm; no murmurs Abdomen- normal bowel sounds, nondistended, soft, nontender Extremities- no pretibial edema, no calf tenderness Neuro- alert, oriented x 3; no gross focal neurologic deficits Skin- warm & dry Results & Data Results & Data Vital Signs (Past 12 Hours) Vital Signs Pulse O2 Del Method O2 Flow Rate 04/27/24 07:23 81 04/27/24 05:51 Nasal Cannula 2 all noted and reviewed including below
[2024-04-27] MEDS: FERROUS SULFATE 325 MG TAB PO SCH (18:12)
[2024-04-27] MEDS: MIRTAZAPINE TAB 15 MG TAB PO SCH (22:08)
[2024-04-27] MEDS: GABAPENTIN 600 MG TAB PO SCH (22:08)
[2024-04-28] MEDS: INSULIN ASPART PER UNIT CHARGE SC SCH (02:34)
[2024-04-28 07:39] LABS: Basophils # (auto) 0.01 K/uL (0.00-0.20); Basophils % (auto) 0.1 %; Eosinophils # (auto) 0.01 K/uL (0.00-0.50); Eosinophils % (auto) 0.1 %; Hematocrit (blood only) 38.9 % (42.0-52.0); Hemoglobin 12.9 g/dl (14.0-18.0); Immature Granulocytes # (auto) 0.02 K/uL (0.01-0.20); Immature Granulocytes % (auto) 0.2 %; Lymphocytes # (auto) 0.93 K/uL (1.20-3.40); Lymphocytes % (auto) 10.3 %; Mean Corpuscular Hemoglobin 26.5 pg (25.0-34.0); Mean Corpuscular Hgb Conc 33.2 g/dL (32.0-36.0); Mean Platelet Volume 9.4 fL (9.4-12.4); Monocytes % (auto) 12.2 %; Neutrophils # (auto) 6.97 K/uL (1.40-6.50); Neutrophils % (auto) 77.1 %; Platelet Count 253 K/uL (130-400); RDW Coefficient of Variation 12.6 % (11.5-14.5); RDW Standard Deviation 35.8 fL (36.4-46.3); Red Blood Count 4.86 M/uL (4.70-6.10); White Blood Count 9.04 K/ul (4.8-10.8)
[2024-04-28 07:56] LABS: Albumin Globulin Ratio 1.9 (0.9-2); BUN Creatinine Ratio 39.1 (10-20); Calcium 8.8 mg/dl (8.6-10.3); Est GFR (African American) 124.2 ml/min; Est GFR (Non-African American) 107.2 ml/min; Globulin 2.1 gm/dl (2.5-4.0); Magnesium 2.3 mg/dl (1.7-2.4); Potassium 4.2 mmol/L (3.5-5.1); Total Protein 6.1 gm/dl (6.0-8.3)
[2024-04-28] MEDS: REMDESIVIR 100 MG in SODIUM CHLORIDE 0.9% 230 ML IV SCH (08:14)
[2024-04-28] MEDS: guaiFENesin 600 MG TABCR PO SCH (12:37)
--- NOTE | 2024-04-28 17:32 | Hospitalist Progress Note ---
Date of Service April 28, 2024 Assessment & Plan (1) Acute hypoxemic respiratory failure: Plan: Mild pulmonary edema on CT imaging COVID-19 Pneumonia - Improving Weaned off oxygen supplement, currently on room air Remdesivir Decadron Mucinex IS, FV Lovenox SC for DVT prophylaxis - received IV Lasix echo: EF 60 to 65% Mild LVH Nondilated cardiac chambers No significant valvular pathology Confusion, aphasia episodes possible TIA vs Metabolic Encephalopathy - Neuro symptoms resolved - Brain MRI: 1. Motion degraded. No acute intracranial abnormality identified, specifically no acute or subacute infarct. 2. Suggestion of mild chronic microvascular ischemic disease. 3. No abnormal enhancement - evaluated by Neuro continue ASA 81mg po daily hyperlipidemia, on statin Rx DM2 insulin requiring, unknown baseline control a1c 8.4 ISS New onset anemia, recent outpatient hemoglobin from October 2023 within normal limits as per [facility] staff, no overt source of bleed currently, FOBT done at the ER negative. -- Hg stable -- Fe 27 Start ferrous sulfate mood disorder past history of substance abuse as per records DVT prophylaxis per Lovenox subcu Full code Admission and Anticipated Discharge Date Admission Date: April 26, 2024 Subjective Follow-up for COVID-19 pneumonia, strokelike symptoms etc. Seen resting in bed, comfortable, sitting up, in good spirits On room air States he feels improved compared to yesterday Denies shortness of breath, has occasional productive cough No chest pain, palpitations, dizziness No neurologic symptoms No other new symptoms Review of Systems Review of Systems: all noted and negative except for above Physical Exam Physical Exam: General- oriented x 3, not in distress, speaks in sentences with no effort or accessory muscle use Eyes- anicteric Neck- no JVD Lungs- mild rales at the bases Heart- normal rate, regular rhythm; no murmurs Abdomen- normal bowel sounds, nondistended, soft, nontender Extremities- no pretibial edema, no calf tenderness Neuro- alert, oriented x 3; no gross focal neurologic deficits Skin- warm & dry Results & Data Results & Data Vital Signs (Past 12 Hours) Vital Signs Temp Pulse Pulse Resp BP Pulse Ox O2 Del Method 04/28/24 16:14 36.5 C 59 L 18 138/83 97 Room Air 04/28/24 10:47 36.5 C 71 20 140/86 93 Room Air 04/28/24 08:19 Nasal Cannula 04/28/24 07:15 36.8 C 68 20 141/76 H 96 Room Air 04/28/24 07:08 60 O2 Flow Rate 04/28/24 16:14 04/28/24 10:47 04/28/24 08:19 2 04/28/24 07:15 04/28/24 07:08 all noted and reviewed including below
[2024-04-28] MEDS: ACETAMINOPHEN 325 MG TAB PO PRN (18:47)
--- NOTE | 2024-04-28 21:39 | Electrocardiogram Report ---
Test Reason : Blood Pressure : */* mmHG Vent. Rate : 84 BPM Atrial Rate : 84 BPM P-R Int : 156 ms QRS Dur : 92 ms QT Int : 344 ms P-R-T Axes : 30 -40 1 degrees QTcB Int : 406 ms Poor data quality, interpretation may be adversely affected Normal sinus rhythm Left axis deviation Incomplete right bundle branch block Minimal voltage criteria for LVH, may be normal variant ( R in aVL ) Poor R wave progression, consider anterior MO vs. lead placement vs. LVH Abnormal ECG No previous ECGs available Confirmed by Tayo Cardoza ([id number]) on 04/28/2024 9:39:39 PM Referred By: [facility] Confirmed By: Tayo Cardoza
[2024-04-29 06:45] LABS: Basophils # (auto) 0.01 K/uL (0.00-0.20); Basophils % (auto) 0.1 %; Eosinophils # (auto) 0.03 K/uL (0.00-0.50); Eosinophils % (auto) 0.3 %; Hematocrit (blood only) 39.7 % (42.0-52.0); Hemoglobin 13.4 g/dl (14.0-18.0); Immature Granulocytes # (auto) 0.03 K/uL (0.01-0.20); Immature Granulocytes % (auto) 0.3 %; Lymphocytes # (auto) 1.19 K/uL (1.20-3.40); Lymphocytes % (auto) 10.8 %; Mean Corpuscular Hemoglobin 26.6 pg (25.0-34.0); Mean Corpuscular Hgb Conc 33.8 g/dL (32.0-36.0); Mean Corpuscular Volume 78.8 fL (80.0-100.0); Mean Platelet Volume 9.5 fL (9.4-12.4); Monocytes # (auto) 0.89 K/uL (0.11-0.59); Monocytes % (auto) 8.1 %; Neutrophils # (auto) 8.89 K/uL (1.40-6.50); Neutrophils % (auto) 80.4 %; Platelet Count 279 K/uL (130-400); RDW Coefficient of Variation 12.7 % (11.5-14.5); Red Blood Count 5.04 M/uL (4.70-6.10); White Blood Count 11.04 K/ul (4.8-10.8)
[2024-04-29] MEDS: LANTUS PER UNIT CHARGE SQ SCH (08:39)
[2024-04-29 08:47] LABS: Albumin Level 3.9 gm/dl (3.4-5.0); Bilirubin,Total 0.6 mg/dl (0.2-1.0); Calcium 8.9 mg/dl (8.6-10.3); Potassium 4.2 mmol/L (3.5-5.1)
[2024-04-29 08:53] LABS: Albumin Globulin Ratio 1.8 (0.9-2); BUN Creatinine Ratio 38.5 (10-20); Creatinine Clr Calc Pharmacy 138.9 ml/min; Est GFR (African American) 123.4 ml/min; Est GFR (Non-African American) 106.5 ml/min; Globulin 2.2 gm/dl (2.5-4.0); Total Protein 6.1 gm/dl (6.0-8.3)
--- NOTE | 2024-04-29 11:18 | Pharmacy Report ---
Pharmacy Glycemic Short Note 2 - Date of Service April 29, 2024 - Glycemic Short BSG Results (Last 24 hours): 04/28/24 04/28/24 04/28/24 11:36 16:16 20:32 Glucose POC Glucose 199 H 162 H 123 H 04/29/24 04/29/24 04/29/24 05:58 07:28 11:00 Glucose 153 H POC Glucose 170 H 176 H OUTPATIENT ANTIDIABETIC REGIMEN: * Lantus 35 units SC Daily * Metformin 1g PO BID * HbA1c: 8.4% (04/27/24) ASSESSMENT: 04/29: * BSGs yesterday were [phone] mg/dL. Received 35 units basal + 46 units bolus (81 units total). * Fasting BSG this AM was 170 mg/dL, still uncontrolled. Tolerating PO intake. Remains on Dexamethasone 6 mg IV daily for COVID-19. * Since Novolog was tightened yesterday, will not adjust today. Instead will increase basal by 20% today. Remains on Remdesivir. 04/27: * 58 YO M, admitted with stroke-like symptoms, COVID-19 repiratory virus, on IV Remdesivir. * Patient had basal insulin last on 04/26, restart home dose. * Patient was NPO this morning, started diet with lunch. * Patient on IV Dexamethasone daily - tighten CF/CR at this time. * Add overnight check tonight for steroids. PLAN FOR INPATIENT GLYCEMIC CONTROL: * Basal insulin * Lantus 42 units SC daily * Bolus insulin * NovoLog per scale ACHS or Q6hrs while NPO * Goal Range: Low 110 mg/dL - High 140 mg/dL * Correction Factor: 12 mg/dL/unit * Nutritional / Prandial insulin per carb ratio of 1 unit per 4 grams CHO consumed
--- NOTE | 2024-04-29 16:24 | Hospitalist Progress Note ---
Date of Service April 29, 2024 Assessment & Plan (1) Acute hypoxemic respiratory failure: Plan: Mild pulmonary edema on CT imaging COVID-19 Pneumonia - Improved overall Weaned off oxygen supplement, currently on room air Remdesivir Decadron Mucinex IS, FV Lovenox SC for DVT prophylaxis - received IV Lasix echo: EF 60 to 65% Mild LVH Nondilated cardiac chambers No significant valvular pathology Confusion, aphasia episodes possible TIA vs Metabolic Encephalopathy - Neuro symptoms resolved - Brain MRI: 1. Motion degraded. No acute intracranial abnormality identified, specifically no acute or subacute infarct. 2. Suggestion of mild chronic microvascular ischemic disease. 3. No abnormal enhancement - evaluated by Neuro continue ASA 81mg po daily no recurrence Constipation - check KUB Lactulose ordered hyperlipidemia, on statin Rx DM2 insulin requiring, unknown baseline control a1c 8.4 ISS New onset anemia, recent outpatient hemoglobin from October 2023 within normal limits as per [facility] staff, no overt source of bleed currently, FOBT done at the ER negative. -- Hg stable -- Fe 27 Start ferrous sulfate mood disorder past history of substance abuse as per records DVT prophylaxis per Lovenox subcu Full code Admission and Anticipated Discharge Date Admission Date: April 26, 2024 Subjective ff up for covid 19 pneumonia, etc seen resting in bed, sitting up comfortable , on room air feels ok overall no dyspnea, less cough states abdomen feels "numb", no BM since Th, no flatus no nausea no other symptoms Review of Systems Review of Systems: all noted and negative except for above Physical Exam Physical Exam: General- oriented x 3, not in distress, speaks in sentences with no effort or accessory muscle use Eyes- anicteric Neck- no JVD Lungs- clear breath sounds bilaterally, no rales/wheezes Heart- normal rate, regular rhythm; no murmurs Abdomen- normal bowel sounds, mildly distended, soft, nontender Extremities- no pretibial edema, no calf tenderness Neuro- alert, oriented x 3; no gross focal neurologic deficits Skin- warm & dry Results & Data Results & Data Vital Signs (Past 12 Hours) Vital Signs Temp Pulse Pulse Resp BP Pulse Ox O2 Del Method 04/29/24 15:29 67 04/29/24 11:00 36.5 C 76 20 139/85 98 Room Air 04/29/24 08:00 66 04/29/24 07:29 36.5 C 72 20 155/85 H 95 Room Air all noted and reviewed including below
[2024-04-29] MEDS: LACTULOSE SYRUP 30 GM/45 ML UDP PO STA (17:38)
[2024-04-30 06:34] LABS: Albumin Globulin Ratio 1.9 (0.9-2); Albumin Level 3.9 gm/dl (3.4-5.0); BUN Creatinine Ratio 38.6 (10-20); Bilirubin,Total 0.5 mg/dl (0.2-1.0); Calcium 8.8 mg/dl (8.6-10.3); Creatinine Clr Calc Pharmacy 131.3 ml/min; Est GFR (African American) 119.7 ml/min; Est GFR (Non-African American) 103.3 ml/min; Globulin 2.1 gm/dl (2.5-4.0); Potassium 4.2 mmol/L (3.5-5.1)
--- NOTE | 2024-04-30 08:00 | XRay Report ---
XR KUB/Abdomen 1 view CLINICAL HISTORY: R/O ILEUS, SBO TECHNIQUE: 1 view of the abdomen was obtained. Comparison: None available at the time of this dictation. FINDINGS: Lung bases are unremarkable. Degenerative changes are seen in the visualized skeleton. The bowel gas pattern is nonobstructive. A moderate amount of stool is noted within the large bowel. IMPRESSION: Nonobstructive bowel gas pattern. ACT 112: Negative or not required by law. Electronically signed by: Michael Coy M.D. 04/30/2024 7:59 AM
--- NOTE | 2024-04-30 09:24 | Discharge Summary ---
Discharge Summary Date of Service April 30, 2024 Principal Dx & Hospital Course #1 = Principal Diagnosis (1) Acute hypoxemic respiratory failure: COVID-19 Pneumonia - Clinically Improved overall Weaned off oxygen supplement, currently on room air given Remdesivir x 4 days Decadron Mucinex IS, FV Lovenox SC for DVT prophylaxis - received IV Lasix echo: EF 60 to 65% Mild LVH Nondilated cardiac chambers No significant valvular pathology - continue Mucinex x 3 days Confusion, aphasia episodes possible TIA vs Metabolic Encephalopathy - Neuro symptoms resolved - Brain MRI: 1. Motion degraded. No acute intracranial abnormality identified, specifically no acute or subacute infarct. 2. Suggestion of mild chronic microvascular ischemic disease. 3. No abnormal enhancement - evaluated by Neuro continue ASA 81mg po daily no recurrence Constipation - check KUB: no SBO Lactulose ordered - resolved Fatty Liver - seen on CT scan - ff up as outpatient hyperlipidemia on statin Rx monitor levels DM2 insulin requiring a1c 8.4 ISS - monitor A1c closely New onset anemia -- recent outpatient hemoglobin from October 2023 within normal limits as per [facility] staff, no overt source of bleed currently, FOBT done at the ER negative. -- Hg stable 12-13 -- Fe low at 27 Start ferrous sulfate -- monitor Hg and Iron level mood disorder past history of substance abuse as per records DVT prophylaxis given Lovenox subcu Return to [facility] facility Notes For Next Care Provider Medication Changes From Visit New medications: Aspirin 81 mg daily Mucinex x 3 days Admission HPI Per Admitting Provider History obtained from patient, [facility] staff, and records. Limited history from patient secondary to disorientation. Medical history significant for hyperlipidemia, DM2 insulin requiring, GERD, chronic back pain, mood disorder, past history of substance abuse. Patient woke up this morning complaining of left-sided headache. Patient noted to be slurring his speech in the afternoon. Subsequent emesis. Patient brought to ER for evaluation. Stroke alert called upon arrival at the ER. O2 sats noted to be 80s on room air. Patient unable to answer questions regarding headache, chest pain, cough, SOB, abdominal pain due to confusion. Medical History as above Surgical History/Family History/Personal/Social history : Could not be obtained secondary to disorientation Admission Exam Per Admitting Provider GENERAL: Aphasic, disoriented, restless, no respiratory distress SKIN: Pallor, warm HEENT: Pale palpebral conjunctivae, no ptosis, dry buccal mucosa NECK : Supple, no tenderness CHEST : Decreased breath sounds, no tenderness HEART : RRR, no obvious murmurs ABDOMEN: Some distention, nontender RECTAL : Intact sphincter, yellow stool (FOBT negative) EXTREMITIES : No LE swelling/tenderness, no other conspicuous deformities noted NEUROLOGIC : Aphasic, disoriented, no facial asymmetry, gait and stance not assessed Discharge Exam General- oriented x 3, not in distress, speaks in sentences with no effort or accessory muscle use Eyes- anicteric Neck- no JVD Lungs- clear breath sounds bilaterally, no rales/wheezes Heart- normal rate, regular rhythm; no murmurs Abdomen- normal bowel sounds, mildly distended, soft, nontender Extremities- no pretibial edema, no calf tenderness Neuro- alert, oriented x 3; no gross focal neurologic deficits Skin- warm & dry Updated Medication List Medication Instructions Recorded Confirmed Type Crestor 40 mg PO 1XD 04/26/24 04/26/24 History acetaminophen 650 mg PO 4XD 04/26/24 04/26/24 History duloxetine 60 mg PO 1XD 04/26/24 04/26/24 History gabapentin 600 mg PO 2XD 04/26/24 04/26/24 History insulin glargine 35 units SC 1XD 04/26/24 04/26/24 History meloxicam 15 mg PO 1XD PRN Pain 04/26/24 04/26/24 History metformin 1,000 mg PO 2XD 04/26/24 04/26/24 History mirtazapine 30 mg PO 1XD 04/26/24 04/26/24 History omeprazole 20 mg PO 1XD 04/26/24 04/26/24 History aspirin 81 mg tablet,delayed 81 mg PO DAILY 30 days #30 tabs 04/29/24 Rx release ferrous sulfate 325 mg (65 mg 325 mg PO BIDM 30 days #60 tabs 04/29/24 Rx iron) tablet,delayed release guaifenesin 600 mg tablet, 600 mg PO Q12 5 days #10 tabs 04/29/24 Rx extended release 12 hr (Mucinex) Hospital Stay Data Consultations 04/26/24 22:22 ED Decision to Admit Stat 04/27/24 08:00 Consult Neurology Routine Diagnostic Imagining Performed Laboratory Results WBC 11.04 K/ul (4.8-10.8) H 04/29/24 05:58 RBC 5.04 M/uL (4.70-6.10) 04/29/24 05:58 Hgb 13.4 g/dl (14.0-18.0) L 04/29/24 05:58 POC Hgb 12.2 g/dl (14.0-18.0) L 04/26/24 20:49 Hct 39.7 % (42.0-52.0) L 04/29/24 05:58 POC Hct 36 % (42-52) L 04/26/24 20:49 MCV 78.8 fL (80.0-100.0) L 04/29/24 05:58 MCH 26.6 pg (25.0-34.0) 04/29/24 05:58 MCHC 33.8 g/dL (32.0-36.0) 04/29/24 05:58 RDW Std Deviation 36.0 fL (36.4-46.3) L 04/29/24 05:58 RDW Coeff of Juliana 12.7 % (11.5-14.5) 04/29/24 05:58 Plt Count 279 K/uL (130-400) 04/29/24 05:58 MPV 9.5 fL (9.4-12.4) 04/29/24 05:58 Immature Gran % (Auto) 0.3 % 04/29/24 05:58 Neut % (Auto) 80.4 % 04/29/24 05:58 Lymph % (Auto) 10.8 % 04/29/24 05:58 Harlan % (Auto) 8.1 % 04/29/24 05:58 Eos % (Auto) 0.3 % 04/29/24 05:58 Baso % (Auto) 0.1 % 04/29/24 05:58 Reticulocyte % (Auto) 0.97 % (0.50-2.00) 04/27/24 00:31 Neut # (Auto) 8.89 K/uL (1.40-6.50) H 04/29/24 05:58 Lymph # (Auto) 1.19 K/uL (1.20-3.40) L 04/29/24 05:58 [place]lan # (Auto) 0.89 K/uL (0.11-0.59) H 04/29/24 05:58 Eos # (Auto) 0.03 K/uL (0.00-0.50) 04/29/24 05:58 Baso # (Auto) 0.01 K/uL (0.00-0.20) 04/29/24 05:58 Reticulocyte # 0.040 10^6/uL (0.020-0.100) 04/27/24 00:31 Immature Gran # (Auto) 0.03 K/uL (0.01-0.20) 04/29/24 05:58 PT 11.2 Seconds (9.0-12.0) 04/26/24 20:45 INR 1.0 (0.9-1.1) 04/26/24 20:45 APTT 25 Seconds (21-31) 04/26/24 20:45 PTT Ratio 0.9 04/26/24 20:45 VBG pH 7.39 (7.36-7.41) 04/27/24 00:31 VBG pCO2 44 mmHg (38-50) 04/27/24 00:31 VBG pO2 41 mmHg 04/27/24 00:31 VBG HCO3 27 mmol/L 04/27/24 00:31 VBG O2 Saturation 73.6 % 04/27/24 00:31 VBG Base Excess 1.2 mEq/L 04/27/24 00:31 POC Sodium 136 mmol/L (135-144) 04/26/24 20:49 Sodium 139 mmol/L (136-145) 04/30/24 05:43 POC Potassium 4.2 mmol/L (3.3-5.0) 04/26/24 20:49 Potassium 4.2 mmol/L (3.5-5.1) 04/30/24 05:43 POC Chloride 98 mmol/L (101-112) L 04/26/24 20:49 Chloride 106 mmol/L (98-107) 04/30/24 05:43 Carbon Dioxide 27 mmol/L (21-32) 04/30/24 05:43 POC Total CO2 23 mmol/L (24-31) L 04/26/24 20:49 Anion Gap 6 (3-11) 04/30/24 05:43 POC Anion Gap 21.0 mmol/L (16-25) 04/26/24 20:49 POC BUN 12 mg/dl (7-18) 04/26/24 20:49 BUN 27 mg/dl (6-23) H 04/30/24 05:43 Creatinine 0.70 mg/dl (0.6-1.4) 04/30/24 05:43 POC Creatinine 0.7 mg/dl (0.6-1.3) 04/26/24 20:49 Est Cr Clr Drug Dosing 131.3 ml/min 04/30/24 05:43 Est GFR ( Amer) 119.7 ml/min 04/30/24 05:43 Est GFR (Non-Af Amer) 103.3 ml/min 04/30/24 05:43 BUN/Creatinine Ratio 38.6 (10-20) H 04/30/24 05:43 Glucose 160 mg/dl (70-99(Fasting)) H 04/30/24 05:43 POC Glucose 158 mg/dl (70-99) H 04/30/24 07:42 POC Glucose (other) 138 mg/dl (70-99) H 04/26/24 20:49 Estimat Average Glucose 194 mg/dl 04/27/24 06:01 Hemoglobin A1c 8.4 % (4.5-5.6) H 04/27/24 06:01 Calcium 8.8 mg/dl (8.6-10.3) 04/30/24 05:43 POC Ioniz Calcium [place] 1.16 mmol/l (1.12-1.32) 04/26/24 20:49 Magnesium 2.3 mg/dl (1.7-2.4) 04/28/24 07:04 Iron 27 mcg/dl (35-175) L 04/27/24 00:31 Transferrin 237 mg/dl (200-360) 04/27/24 00:31 Ferritin 136.7 ng/ml (8-388) 04/27/24 00:31 Total Bilirubin 0.5 mg/dl (0.2-1.0) 04/30/24 05:43 AST 14 U/L (13-39) 04/30/24 05:43 ALT 16 U/L (7-52) 04/30/24 05:43 Alkaline Phosphatase 49 U/L (34-104) 04/30/24 05:43 Ammonia 31.0 umol/L (18-72) 04/27/24 00:31 B-Natriuretic Peptide 136 pg/ml (0-100) H 04/27/24 07:35 Total Protein 6.0 gm/dl (6.0-8.3) 04/30/24 05:43 Albumin 3.9 gm/dl (3.4-5.0) 04/30/24 05:43 Globulin 2.1 gm/dl (2.5-4.0) L 04/30/24 05:43 Albumin/Globulin Ratio 1.9 (0.9-2) 04/30/24 05:43 Triglycerides 102 mg/dl (0-150) 04/27/24 06:01 Cholesterol 135 mg/dl (0-200) 04/27/24 06:01 LDL Cholesterol, Calc 64 mg/dl 04/27/24 06:01 VLDL Cholesterol, Calc 20 mg/dl (0-30) 04/27/24 06:01 HDL Cholesterol 51 mg/dl 04/27/24 06:01 Cholesterol/HDL Ratio 2.6 (0-5) 04/27/24 06:01 Vitamin B12 218 pg/ml (180-914) 04/27/24 00:31 Folate 14.47 ng/ml (>5.38) 04/27/24 00:31 TSH 0.954 uIu/ml (0.300-4.500) 04/26/24 20:45 Urine Color Yellow 04/26/24 22:12 Urine Appearance Clear (Clear) 04/26/24 22:12 Urine pH 7.5 (4.5-7.5) 04/26/24 22:12 Ur Specific [place] > 1.045 (1.000-1.030) H 04/26/24 22:12 Urine Protein 1+ (Negative) H 04/26/24 22:12 Urine Glucose (UA) Negative (Negative) 04/26/24 22:12 Urine Ketones Negative (Negative) 04/26/24 22:12 Urine Blood Negative (Negative) 04/26/24 22:12 Urine Nitrite Negative (Negative) 04/26/24 22:12 Urine Bilirubin Negative (Negative) 04/26/24 22:12 Urine Urobilinogen Negative (Negative) 04/26/24 22:12 Ur Leukocyte Esterase Negative (Negative) 04/26/24 22:12 Urine WBC (Auto) 0-5 /hpf (0-5) 04/26/24 22:12 Urine RBC (Auto) 0-2 /hpf (0-2) 04/26/24 22:12 U Hyaline Cast (Auto) 0-2 /lpf (0-2) 04/26/24 22:12 U Epithel Cells (Auto) 0-2 /hpf (0-2) 04/26/24 22:12 Urine Bacteria (Auto) None Seen (None Seen) 04/26/24 22:12 Nasal Screen MRSA (PCR) Negative (Negative) 04/27/24 Unknown Urine Opiates Screen Neg (Neg) 04/26/24 22:12 Ur Methadone, Qual Neg (Neg) 04/26/24 22:12 Urine Fentanyl Screen Neg (Neg) 04/26/24 22:12 Urine Barbiturates Neg (Neg) 04/26/24 22:12 Ur Phencyclidine (PCP) Neg (Neg) 04/26/24 22:12 U Amphetamin/Meth Scrn Neg (Neg) 04/26/24 22:12 MDMA (Ecstasy) Screen Neg (Neg) 04/26/24 22:12 U Benzodiazepines Scrn Neg (Neg) 04/26/24 22:12 Ur Cocaine Metabolite Neg (Neg) 04/26/24 22:12 U Marijuana (THC) Screen Neg (Neg) 04/26/24 22:12 Adenovirus (PCR) Not Detected (NotDetected) 04/26/24 19:36 B. pertussis DNA (PCR) Not Detected (NotDetected) 04/26/24 19:36 B.parapertussis DNA PCR Not Detected (NotDetected) 04/26/24 19:36 Lyme Disease Screen Negative (Negative) 04/26/24 20:45 C. pneumoniae DNA (PCR) Not Detected (NotDetected) 04/26/24 19:36 Coronavirus OC43 (PCR) Not Detected (NotDetected) 04/26/24 19:36 Coronavirus HKU1 (PCR) Not Detected (NotDetected) 04/26/24 19:36 Coronavirus 229E (PCR) Not Detected (NotDetected) 04/26/24 19:36 SARS-CoV-2 (PCR) DETECTED (NotDetected) A 04/26/24 19:36 Coronavirus NL63 (PCR) Not Detected (NotDetected) 04/26/24 19:36 Human Metapneumovir PCR Not Detected (NotDetected) 04/26/24 19:36 Influenza Type A (PCR) Not Detected (NotDetected) 04/26/24 19:36 Influenza Type B (PCR) Not Detected (NotDetected) 04/26/24 19:36 M. pneumoniae (PCR) Not Detected (NotDetected) 04/26/24 19:36 Parainfluenza 1 (PCR) Not Detected (NotDetected) 04/26/24 19:36 Parainfluenza 2 (PCR) Not Detected (NotDetected) 04/26/24 19:36 Parainfluenza 3 (PCR) Not Detected (NotDetected) 04/26/24 19:36 Parainfluenza 4 (PCR) Not Detected (NotDetected) 04/26/24 19:36 RSV (PCR) Not Detected (NotDetected) 04/26/24 19:36 Entero/Rhino (PCR) Not Detected (NotDetected) 04/26/24 19:[address] 04/26/24 20:30 CR Exam(s): CT HEAD Without Contrast EXAM: CT Head Without Intravenous Contrast CLINICAL HISTORY: Reason for exam: altered mental status; vomiting; headache. TECHNIQUE: Axial computed tomography images of the head/brain without intravenous contrast. CTDI is 44.21 mGy and DLP is 774.27 mGy-cm. Automated exposure control was utilized for the study. A dose lowering technique was utilized adhering to the principles of ALARA. COMPARISON: No relevant prior studies available. FINDINGS: Limitations: Exam slight limited secondary patient motion artifact. Brain: Unremarkable. No hemorrhage. No significant white matter disease. No edema. Ventricles: Unremarkable. No ventriculomegaly. Bones/joints: Unremarkable. No acute fracture. Soft tissues: Unremarkable. Sinuses: Unremarkable as visualized. No acute sinusitis. Mastoid air cells: Unremarkable as visualized. No mastoid effusion. IMPRESSION: No acute findings in the head/brain. Communications: Call Doctor Stroke Electronically signed by: Melvin Moscoso MD 04/26/24 21:16 PM Head CTA 04/26/24 20:30 CR Exam(s): CTA HEAD With Contrast IV Amt: 119 ml opti 320 EXAM: CT Angiography Head With Intravenous Contrast CLINICAL HISTORY: Reason for exam: stroke. TECHNIQUE: Axial computed tomographic angiography images of the head with intravenous contrast. CTDI is 91.44 mGy and DLP is 1342.35 mGy-cm. Automated exposure control was utilized for the study. A dose lowering technique was utilized adhering to the principles of ALARA. MIP reconstructed images were created and reviewed. CONTRAST: Patient received 119 ml opti 320 of IV contrast COMPARISON: No relevant prior studies available. FINDINGS: Right internal carotid artery: No acute findings. Intracranial segment is patent with no significant stenosis. No aneurysm. Right anterior cerebral artery: Unremarkable. No occlusion or significant stenosis. No aneurysm. Right middle cerebral artery: Unremarkable. No occlusion or significant stenosis. No aneurysm. Right posterior cerebral artery: Unremarkable. No occlusion or significant stenosis. No aneurysm. Right vertebral artery: Unremarkable as visualized. Left internal carotid artery: No acute findings. Intracranial segment is patent with no significant stenosis. No aneurysm. Left anterior cerebral artery: Unremarkable. No occlusion or significant stenosis. No aneurysm. Left middle cerebral artery: Unremarkable. No occlusion or significant stenosis. No aneurysm. Left posterior cerebral artery: Unremarkable. No occlusion or significant stenosis. No aneurysm. Left vertebral artery: Unremarkable as visualized. Basilar artery: Unremarkable. No occlusion or significant stenosis. No aneurysm. IMPRESSION: Normal head CTA. Communications: Call Doctor Stroke Electronically signed by: Melvin Moscoso MD 04/26/24 21:25 PM Neck CTA 04/26/24 20:30 CR Exam(s): CTA NECK With Contrast IV Amt: 119 ml opti 320 EXAM: CT Angiography Neck With Intravenous Contrast CLINICAL HISTORY: Reason for exam: stroke like symptoms. TECHNIQUE: Routine carotid CT angiography protocol was performed with intravenous contrast. NASCET criteria using the distal ICAs for comparison were used for evaluation of stenoses. CTDI is 91.44 mGy and DLP is 1342.35 mGy-cm. Automated exposure control was utilized for the study. A dose lowering technique was utilized adhering to the principles of ALARA. MIP reconstructed images were created and reviewed. CONTRAST: Patient received 119 ml opti 320 of IV contrast COMPARISON: None. FINDINGS: VASCULATURE: Right common carotid artery: Unremarkable. No occlusion or significant stenosis. No dissection. Right internal carotid artery: Unremarkable. Extracranial segment is patent with no occlusion or significant stenosis. No dissection. Right external carotid artery: Unremarkable. No occlusion. Right vertebral artery: Unremarkable. No occlusion or significant stenosis. No dissection. Left common carotid artery: Unremarkable. No occlusion or significant stenosis. No dissection. Left internal carotid artery: Unremarkable. Extracranial segment is patent with no occlusion or significant stenosis. No dissection. Left external carotid artery: Unremarkable. No occlusion. Left vertebral artery: Unremarkable. No occlusion or significant stenosis. No dissection. NECK: Bones/joints: Unremarkable. No acute fracture. Soft tissues: Unremarkable. Lung apices: Clear. CAROTID STENOSIS REFERENCE USING NASCET CRITERIA: % ICA stenosis = (1 - narrowest ICA diameter/diameter of distal cervical ICA) x 100. Mild - <50% stenosis. Moderate - 50-69% stenosis. Severe - 70-94% stenosis. Near occlusion - 95-99% stenosis. Occluded - 100% stenosis. IMPRESSION: Negative CTA neck. Communications: Call Doctor Stroke Electronically signed by: Melvin Moscoso MD 04/26/24 21:26 PM Chest X-Ray 04/26/24 20:31 XR chest 1V portable HISTORY: 58 years-old Male stroke alert acute strokelike symptoms COMPARISON: CTA chest 04/27/2024 TECHNIQUE: AP view of the chest FINDINGS: Cardiac silhouette is enlarged. No pneumothorax, pleural effusion, or lobar airspace consolidation. Pulmonary vascular congestion with mild interstitial coarsening. Bones appear grossly intact. IMPRESSION: Cardiomegaly with pulmonary vascular congestion. ACT 112: Negative or not required by law. The above report was generated using voice recognition software. It may contain grammatical, syntax or spelling errors. Electronically signed by: Homar Merino M.D. 04/27/2024 7:36 AM Chest CTA 04/26/24 23:57 Exam(s): CTA CHEST IV Amt: 120 ML EXAM: CT Angiography Chest With Intravenous Contrast CLINICAL HISTORY: Reason for exam: low o2. TECHNIQUE: Axial computed tomographic angiography images of the chest with intravenous contrast. CTDI is 27.05 mGy and DLP is 833.04 mGy-cm. Automated exposure control was utilized for the study. A dose lowering technique was utilized adhering to the principles of ALARA. MIP reconstructed images were created and reviewed. COMPARISON: No relevant prior studies available. FINDINGS: Limitations: Exam limited secondary to patient motion artifact. Pulmonary arteries: Unremarkable. No large central pulmonary embolus. Aorta: No acute findings. No thoracic aortic aneurysm. Lungs: Intralobular septal thickening with groundglass opacities consistent with mild pulmonary edema. Bibasilar dependent atelectasis. Pleural space: Unremarkable. No significant effusion. No pneumothorax. Heart: Unremarkable. No cardiomegaly. No significant pericardial effusion. No evidence of RV dysfunction. Bones/joints: No acute fracture. No dislocation. Soft tissues: Unremarkable. Lymph nodes: Unremarkable. No enlarged lymph nodes. Liver: Fatty infiltration of the liver. IMPRESSION: Limited exam Grossly no acute findings in the visualized arteries of the chest. Electronically signed by: Melvin Moscoso MD 04/27/24 03:34 AM Brain MRI 04/27/24 23:49 MR brain wo/w con HISTORY: 58 years-old Male [place] acute headache with altered mental status COMPARISON: Head CT 04/26/2024 TECHNIQUE: Multiple and multisequence MRI of the brain was obtained with and without IV contrast FINDINGS: No restricted diffusion. The midline structures appear unremarkable. Degenerative changes of the cervical spine. No acute intracranial hemorrhage, midline shift, abnormal extra-axial collection, or Cephalus or intra-axial mass. Mild T2/FLAIR hyperintense foci throughout the white matter. Normal brain volume. Study is mildly motion degraded. Cerebral venous sinuses and major arterial flow voids appear patent. Skull, orbits and soft tissues are unremarkable. Mild mucosal thickening of the paranasal sinuses. No abnormal enhancement. IMPRESSION: 1. Motion degraded. No acute intracranial abnormality identified, specifically no acute or subacute infarct. 2. Suggestion of mild chronic microvascular ischemic disease. 3. No abnormal enhancement ACT 112: Negative or not required by law. The above report was generated using voice recognition software. It may contain grammatical, syntax or spelling errors. Electronically signed by: Homar Merino M.D. 04/27/2024 12:12 PM KUB X-Ray 04/29/24 16:23 XR KUB/Abdomen 1 view CLINICAL HISTORY: R/O ILEUS, SBO TECHNIQUE: 1 view of the abdomen was obtained. Comparison: None available at the time of this dictation. FINDINGS: Lung bases are unremarkable. Degenerative changes are seen in the visualized skeleton. The bowel gas pattern is nonobstructive. A moderate amount of stool is noted within the large bowel. IMPRESSION: Nonobstructive bowel gas pattern. ACT 112: Negative or not required by law. Electronically signed by: Michael oCy M.D. 04/30/2024 7:59 AM 04/26/24 20:30 CT Brain [CT head/brain wo con] Stat CTA head w con [CT angio head w con] Stat CTA neck with con [CT angio neck with con] Stat 04/26/24 23:57 CT angio chest PE protocol Stat 04/27/24 23:49 MR brain wo/w con Stat Pending Results Patient Have Any Pending Studies at Discharge: No Discharge Instructions Given to Patient (Per Discharging Provider) PLEASE REFER TO YOUR NEW MEDICATION LIST AND FOLLOW INSTRUCTIONS CAREFULLY. YOUR NEW MEDICATIONS INCLUDE: Aspirin 81 mg daily for stroke prevention Ferrous sulfate twice a day for iron deficiency anemia Mucinex for cough May remove isolation once patient is afebrile x 24 hours and respiratory symptoms have resolved. PLEASE CALL YOUR PRIMARY CARE PHYSICIAN OR RETURN TO THE ER IF WITH WORSENING OF SYMPTOMS, INCLUDING Shortness of breath, cough, fevers or chills, etc. FOLLOW UP WITH PRIMARY CARE PHYSICIAN OUTLINED ABOVE. Total Time Total Time Spent Total Time Spent (In Minutes): 40 minutes
== END 2024-04-30 13:20 | DRG 177 ==
LOC: ED 20:24 → 2E 23:43